=== PATIENT | female | born 1980 | race American Indian/Alaskan Native ===

== ENCOUNTER 2021-11-10 07:28 | Emergency (ER) | payer SELFPAY ==
--- NOTE | 2021-11-10 08:16 | Emergency Department Report ---
ED N/V/D HPI - General Chief complaint: Nausea/Vomiting/Diarrhea Stated complaint: VOMITING/DIZZY Time Seen by Provider: 11/10/21 08:05 Source: patient Mode of arrival: Ambulatory Limitations: No Limitations - History of Present Illness Initial comments: 41-year-old black female with a past medical history of diabetes, recurrent left lower leg cellulitis, and uterine fibroids presents to the emergency department for evaluation of 1.5-week history of nausea, vomiting, weakness, and headache. She states that she vomits on average about once daily but has persistent nausea and intermittent abdominal pain. She states that headache is also intermittent. She denies fever, dysuria, vaginal discharge, vision changes and dizziness. She states that she has not been able to take her metformin in the last 1.5 weeks and has not checked her blood sugar in over a month. MD complaint: nausea, vomiting, abdominal pain -: Gradual, week(s) (1.5) Associated Abdominal Pain: Yes Location: diffuse Radiation: none Severity: mild Pain Scale: 3 Quality: cramping Consistency: intermittent Associated Symptoms: headaches, nausea/vomiting. denies: myalgias, chest pain, cough, diaphoresis, fever/chills, loss of appetite, malaise, rash, dysuria, shortness of breath, syncope, weakness - Related Data Previous Rx's Medication Instructions Recorded Last Taken Type Gentamicin 0.3% Ophth Soln 2 drops OP Q4H #1 bottle 02/10/13 Unknown Rx Acetaminophen/Codeine [Tylenol 1 tab PO Q6H PRN #14 tab 06/04/18 Unknown Rx /Codeine # 3 tab] Clindamycin [Clindamycin CAP] 300 mg PO Q8H 10 Days #30 cap 06/04/18 Unknown Rx Ondansetron [Zofran Odt] 4 mg PO Q8HR PRN #12 tab.rapdis 11/10/21 Unknown Rx cephALEXin [Keflex] 500 mg PO BID #14 cap 11/10/21 Unknown Rx Allergies Allergy/AdvReac Type Severity Reaction Status Date / Time No Known Allergies Allergy Unverified 02/10/13 16:51 ED Review of Systems ROS: Stated complaint: VOMITING/DIZZY Other details as noted in HPI Comment: All other systems reviewed and negative Constitutional: weakness. denies: chills, fever ENT: denies: ear pain, congestion Respiratory: denies: cough, orthopnea, shortness of breath, SOB with exertion, S OB at rest, stridor, wheezing Cardiovascular: denies: chest pain, palpitations, dyspnea on exertion, orthopnea, edema, syncope, paroxysmal nocturnal dyspnea Gastrointestinal: abdominal pain, nausea, vomiting. denies: diarrhea, hematemesis, melena, hematochezia Genitourinary: denies: urgency, dysuria, frequency, hematuria, discharge Musculoskeletal: denies: back pain Skin: denies: rash, lesions Neurological: headache, weakness. denies: numbness, paresthesias, confusion, vertigo ED Past Medical Hx - Past Medical History Hx Diabetes: Yes Additional medical history: left leg cellulitis, Vaginal delivery x 4 - Surgical History Additional Surgical History: tubal ligation, - Social History Smoking Status: Current Every Day Smoker Substance Use Type: None - Medications Home Medications: Home Medications Medication Instructions Recorded Confirmed Last Taken Type Gentamicin 0.3% Ophth Soln 2 drops OP Q4H #1 bottle 02/10/13 Unknown Rx Acetaminophen/Codeine [Tylenol 1 tab PO Q6H PRN #14 tab 06/04/18 Unknown Rx /Codeine # 3 tab] Clindamycin [Clindamycin CAP] 300 mg PO Q8H 10 Days #30 cap 06/04/18 Unknown Rx Ondansetron [Zofran Odt] 4 mg PO Q8HR PRN #12 tab.rapdis 11/10/21 Unknown Rx cephALEXin [Keflex] 500 mg PO BID #14 cap 11/10/21 Unknown Rx ED Physical Exam - General Limitations: No Limitations General appearance: alert, in no apparent distress - Head Head exam: Present: atraumatic, normocephalic - Eye Eye exam: Present: normal appearance. Absent: conjunctival injection - Neck Neck exam: Present: normal inspection, full ROM. Absent: tenderness, lymphaden opathy - Respiratory Respiratory exam: Present: normal lung sounds bilaterally. Absent: respiratory distress, wheezes, rales, rhonchi, stridor, chest wall tenderness, accessory muscle use - Cardiovascular Cardiovascular Exam: Present: regular rate, normal heart sounds - GI/Abdominal GI/Abdominal exam: Present: soft, normal bowel sounds. Absent: distended, tenderness, guarding, rebound, rigid - Extremities Exam Extremities exam: Present: normal inspection, normal capillary refill. Absent: pedal edema, joint swelling, calf tenderness - Back Exam Back exam: Present: normal inspection, full ROM. Absent: CVA tenderness (R), CVA tenderness (L) - Neurological Exam Neurological exam: Present: alert, oriented X3, normal gait - Psychiatric Psychiatric exam: Present: normal affect, normal mood - Skin Skin exam: Present: warm, dry, intact, normal color ED Course Vital Signs 11/10/21 11/10/21 07:29 08:34 Temperature 98.9 F Pulse Rate 79 Respiratory 16 18 Rate Blood Pressure 138/77 Blood Pressure 130/85 [Left] O2 Sat by Pulse 98 99 Oximetry - Reevaluation(s) Reevaluation #1: 11/10/21 10:45 Nausea resolved. ED Medical Decision Making - Lab Data Result diagrams: 11/10/21 08:03 11/10/21 08:03 - Medical Decision Making 41-year-old black female with a past medical history of diabetes, recurrent left lower leg cellulitis, and uterine fibroids presents to the emergency department for evaluation of 1.5-week history of nausea, vomiting, weakness, and headache. She states that she vomits on average about once daily but has persistent nausea and intermittent abdominal pain. She states that headache is also intermittent. She denies fever, dysuria, vaginal discharge, vision changes and dizziness. She states that she has not been able to take her metformin in the last 1.5 weeks and has not checked her blood sugar in over a month. Physical exam unremarkable. Labs without any acute abnormalities noted, and urine positive for urinary tract infection. Nausea vomiting resolved after Zofran. Patient will be discharged home with 7-day course of Keflex 500 mg t wice daily and advised to take medications as prescribed and increase noncaffeinated fluid intake. She is advised to restart metformin as previously prescribed and follow-up with her primary care provider if no improvement or worsening symptoms. She is advised to return to the emergency department as needed. She verbalizes understanding of and agreement with plan of care. Critical care attestation.: If time is entered above; I have spent that time in minutes in the direct care of this critically ill patient, excluding procedure time. ED Disposition Clinical Impression: UTI (urinary tract infection) Qualifiers: Urinary tract infection type: acute cystitis Hematuria presence: with hematuria Qualified Code(s): N30.01 - Acute cystitis with hematuria Disposition: HOME / SELF CARE / HOMELESS Is pt being admited?: No Does the pt Need Aspirin: No Condition: Stable Instructions: Antibiotic Medicine, Adult, [id number], Urinary Tract Infection, Adult, [id number] Additional Instructions: Take medications as prescribed. Drink plenty of noncaffeinated fluids. Restart metformin as ordered by your previous provider. Follow-up with primary care provider if no improvement or worsening symptoms. Return to the emergency department as needed. Prescriptions: cephALEXin [Keflex] 500 mg PO BID #14 cap Ondansetron [Zofran Odt] 4 mg PO Q8HR PRN #12 tab.rapdis PRN Reason: Nausea And Vomiting Referrals: RENÉ WALTERS [Other] - 3-5 Days THIAGO REY MD [Staff Physician] - 3-5 Days Forms: Work/School Release Form(ED) Time of Disposition: 10:58
[2021-11-10] MEDS ORDERED: SODIUM CHLORIDE 0.9% 1000 ML 1,000 ML IV ONE (08:17)
[2021-11-10 08:30] LABS: Bacteria,Urine 4+ /HPF (Negative); Bilirubin,Urine NEG (Negative); Blood,Urine SM (Negative); Color,Urine Yellow (Yellow); Mucus,Urine 1+ /HPF; Protein,Urine <15 mg/dL mg/dL (Negative); Urobilinogen,Urine < 2.0 mg/dL (<2.0)
[2021-11-10 08:35] VITALS: BP 130/85
[2021-11-10] MEDS ORDERED: ONDANSETRON 4 MG/2 ML INJ IV ONE (08:36)
[2021-11-10 08:42] LABS: Alanine Aminotransferase 13 units/L (7-56); Albumin 4.3 g/dL (3.9-5); Blood Urea Nitrogen 9 mg/dL (7-17); Calcium 9.5 mg/dL (8.4-10.2); Hemolysis Index 11
[2021-11-10 08:43] LABS: BUN/Creatinine Ratio 18
[2021-11-10 08:54] LABS: RBC,Urine > 182.0 /HPF (0.0-6.0); WBC,Urine > 182.0 /HPF (0.0-6.0)
[2021-11-10 09:12] LABS: Basophils # (Auto) 0.1 K/mm3 (0.0-0.1); Basophils % (Auto) 0.9 % (0.0-1.8); Eosinophils # (Auto) 0.1 K/mm3 (0.0-0.4); Eosinophils % (Auto) 1.6 % (0.0-4.3); Hematocrit 41.7 % (30.3-42.9); Hemoglobin 13.7 gm/dl (10.1-14.3); Lymphocytes # (Auto) 1.5 K/mm3 (1.2-5.4); Lymphocytes % (Auto) 21.8 % (13.4-35.0); Mean Corpuscular HGB Conc 33 % (30-34); Mean Corpuscular Volume 81 fl (79-97); Monocytes # (Auto) 0.3 K/mm3 (0.0-0.8); Monocytes % (Auto) 4.9 % (0.0-7.3); Platelet Count 311 K/mm3 (140-440); Red Blood Count 5.16 M/mm3 (3.65-5.03); Red Cell Distribution Width 14.4 % (13.2-15.2)
== END 2021-11-10 11:32 | disposition home or self-care (01) ==
LOC: ED 07:28
DX: N39.0 Urinary tract infection, site not specified (principal); R11.2 Nausea with vomiting, unspecified; R10.84 Generalized abdominal pain; E11.9 Type 2 diabetes mellitus without complications; F17.200 Nicotine dependence, unspecified, uncomplicated; Z98.51 Tubal ligation status; Z98.890 Other specified postprocedural states; Z79.899 Other long term (current) drug therapy
CPT/HCPCS: 36415; 80053; 81001; 82150; 82962; 83690; 84702; 85025; 96361; 96374; 99283; J2405

== ENCOUNTER 2022-01-09 05:54 | Emergency (ER) | payer SELFPAY ==
[2022-01-09 06:00] VITALS: BP 150/89
== END 2022-01-11 11:22 | disposition left against medical advice (07) ==
LOC: ED 05:54
DX: R05.9 Cough, unspecified (principal); Z53.21 Procedure and treatment not carried out due to patient leaving prior to being seen by health care provider